=== PATIENT | female | born 1980 ===

== ENCOUNTER 2021-03-17 06:50 | Day surgery (SDC) | payer OTHER ==
[~2021-03-17 06:50] MED LIST: Lactated Ringers 1,000 ML IV SCH
[2021-03-17] MEDS ORDERED: Midazolam 1 MG/ML 2 ML SDV ONE (06:57)
[2021-03-17] MEDS ORDERED: Propofol 200 MG/20 ML SDV ONE (06:57)
[2021-03-17] MEDS ORDERED: fentaNYL 250 MCG/5 ML SDV ONE (06:57)
[2021-03-17] MEDS ORDERED: Sugammadex Sodium 200 MG/2 ML VIAL ONE (06:58)
[2021-03-17] MEDS ORDERED: Ondansetron 4 MG/2 ML SDV ONE (06:58)
[2021-03-17] MEDS ORDERED: Glycopyrrolate 0.2 MG/ML SDV ONE (06:58)
[2021-03-17] MEDS ORDERED: Lidocaine 2% 5 ML SDV ONE (06:58)
[2021-03-17] MEDS ORDERED: Ketorolac 30 MG/ML SDV ONE (06:58)
[2021-03-17] MEDS ORDERED: Rocuronium Bromide 50 MG/5 ML Syringe ONE (06:58)
[2021-03-17] MEDS ORDERED: Sodium Chloride 0.9% 20 ML ONE (07:08)
[2021-03-17] MEDS ORDERED: ceFAZolin 1 GM Vial ONE (07:08)
[2021-03-17] MEDS ORDERED: Fluorescein 5 ML Vial ONE (07:32)
[2021-03-17] MEDS ORDERED: Methylene Blue 50 MG/10 ML Ampule ONE (07:32)
[2021-03-17] MEDS ORDERED: Octyl 2-Cyanoacrylate 1 Tube ONE (07:33)
[2021-03-17] MEDS ORDERED: Bupivacaine 0.25% 10 ML SDV ONE (07:33)
--- NOTE | 2021-03-17 07:37 | PCM.PREANE ---
Preanesthetic Assessment - Anesthesia/Transfusion/Family Hx Anesthesia History: Prior Anesthesia Without Reaction Family History of Anesthesia Reaction: No Transfusion History: No Prior Transfusion(s) - Review of Systems General: No Symptoms Pulmonary: No Symptoms Cardiovascular: No Symptoms Gastrointestinal: No Symptoms Neurological: No Symptoms Other: Reports: None - Physical Assessment NPO Status Date: 03/17/21 NPO Status Time: 00:01 Vital Signs: Last Vital Signs Temp 97.2 F 03/17/21 07:00 Pulse 71 03/17/21 07:00 Resp 15 03/17/21 07:00 BP 145/86 H 03/17/21 07:00 Pulse Ox 100 03/17/21 07:00 Height: 5 ft 6 in Weight: 197 lb ASA Class: 2 Mental Status: Alert & Oriented x3 Airway Class: Mallampati = 2 Dentition: Reports: Normal Dentition ROM/Head Extension: Full Lungs: Clear to Auscultation, Normal Respiratory Effort Cardiovascular: Regular Rate, Regular Rhythm - Lab Values: Laboratory Last Values WBC 8.18 K/uL (4.0-11.0) 03/17/21 07:10 RBC 4.24 M/uL (4.30-5.90) L 03/17/21 07:10 Hgb 12.8 g/dL (12.0-16.0) 03/17/21 07:10 Hct 38.7 % (36.0-46.0) 03/17/21 07:10 MCV 91.3 fL (80.0-98.0) 03/17/21 07:10 MCH 30.2 pg (27.0-32.0) 03/17/21 07:10 MCHC 33.1 g/dL (31.0-37.0) 03/17/21 07:10 RDW Std Deviation 43.4 fl (28.0-62.0) 03/17/21 07:10 RDW Coeff of Stefania 13 % (11.0-15.0) 03/17/21 07:10 Plt Count 370 K/uL (150-400) 03/17/21 07:10 MPV 10.00 fL (7.40-12.00) 03/17/21 07:10 Neut % (Auto) 42.3 % (48.0-80.0) L 03/17/21 07:10 Lymph % (Auto) 45.8 % (16.0-40.0) H 03/17/21 07:10 Moca % (Auto) 7.7 % (0.0-15.0) 03/17/21 07:10 Eos % (Auto) 3.8 % (0.0-7.0) 03/17/21 07:10 Baso % (Auto) 0.4 % (0.0-1.5) 03/17/21 07:10 Neut # (Auto) 3.5 K/uL (1.4-5.7) 03/17/21 07:10 Lymph # (Auto) 3.8 K/uL (0.6-2.4) H 03/17/21 07:10 Moca # (Auto) 0.6 K/uL (0.0-0.8) 03/17/21 07:10 Eos # (Auto) 0.3 K/uL (0.0-0.7) 03/17/21 07:10 Baso # (Auto) 0.0 K/uL (0.0-0.1) 03/17/21 07:10 Nucleated RBC % 0.0 /100WBC 03/17/21 07:10 Nucleated RBCs # 0 K/uL 03/17/21 07:10 - Allergies Allergies/Adverse Reactions: Allergies Allergy/AdvReac Type Severity Reaction Status Date / Time bupropion [From Wellbutrin] Allergy Hives Verified 03/13/21 08:20 Penicillins Allergy Rash Verified 03/13/21 08:20 - Anesthesia Plan Pre-Op Medication Ordered: None - Acknowledgements Anesthesia Type Planned: General Anesthesia Pt an Appropriate Candidate for the Planned Anesthesia: Yes Alternatives and Risks of Anesthesia Discussed w Pt/Guardian: Yes Pt/Guardian Understands and Agrees with Anesthesia Plan: Yes Additional Comments: npo after mn obesity bmi 32 htn no cv problems depression tob none etoh occ par no questions PreAnesthesia Questionnaire HEENT History: Reports: Other (See Below) Other HEENT History: wears glasses/contacts Cardiovascular History: Reports: Hypertension Respiratory History: Reports: None Gastrointestinal History: Reports: None Genitourinary History: Reports: None SKEIN TIER History: Reports: Musculoskeletal History: Reports: None Neurological History: Reports: None Psychiatric History: Reports: None Endocrine/Metabolic History: Reports: Hypothyroidism, Obesity/BMI 30+ Hematologic History: Reports: None Immunologic History: Reports: None Oncologic (Cancer) History: Reports: None Dermatologic History: Reports: None - Past Surgical History Head Surgeries/Procedures: Reports: None HEENT Surgical History: Reports: None Cardiovascular Surgical History: Reports: None Respiratory Surgical History: Reports: None GI Surgical History: Reports: Appendectomy Female Surgical History: Reports: Section, Other (See Below) Other Female Surgeries/Procedures: c/section x2, laparotomy for dermoid cyst Endocrine Surgical History: Reports: None Neurological Surgical History: Reports: None Musculoskeletal Surgical History: Reports: None Oncologic Surgical History: Reports: None Dermatological Surgical History: Reports: None - SUBSTANCE USE Tobacco Use Status *Q: Former Tobacco User Tobacco Use Within Last Twelve Months: Cigarettes - HOME MEDS Home Medications: Home Meds Levothyroxine [Synthroid] 50 mcg PO DAILY 03/13/21 [History] Losartan [Cozaar] 12.5 mg PO DAILY 03/13/21 [History] Multivitamin 1 tab PO DAILY 03/13/21 [History] Aurora-3/DHA/Epa/Fish Oil [Aurora-3 Fish Oil 1,200 MG Sfgl] 2,400 mg PO DAILY 03/13/21 [History] - CURRENT (IN HOUSE) MEDS Current Meds: Current Medications Lactated Ringer's (Ringers, Lactated) 1,000 mls @ 100 mls/hr IV ASDIRECTED [facility] Last Admin: 03/17/21 07:26 Dose: 100 mls/hr Documented by: Discontinued Medications Cefazolin Sodium (Cefazolin 1 Gm Vial) Confirm Administered Dose 2 gm .ROUTE .STK-MED ONE Stop: 03/17/21 07:09 Fentanyl (Fentanyl 250 Mcg/5 Ml Sdv) Confirm Administered Dose 250 mcg .ROUTE .STK-MED ONE Stop: 03/17/21 06:58 Glycopyrrolate (Glycopyrrolate 0.2 Mg/Ml Sdv) Confirm Administered Dose 0.2 mg .ROUTE .STK-MED ONE Stop: 03/17/21 06:59 Sodium Chloride (Normal Saline) Confirm Administered Dose 20 mls @ as directed .ROUTE .STK-MED ONE Stop: 03/17/21 07:09 Ketorolac Tromethamine (Ketorolac 30 Mg/Ml Sdv) Confirm Administered Dose 30 mg .ROUTE .STK-MED ONE Stop: 03/17/21 06:59 Lidocaine (Lidocaine 2% 5 Ml Sdv) Confirm Administered Dose 5 ml .ROUTE .STK-MED ONE Stop: 03/17/21 06:59 Midazolam HCl (Midazolam 1 Mg/Ml 2 Ml Sdv) Confirm Administered Dose 2 mg .ROUTE .[facility]-MED ONE Stop: 03/17/21 06:58 Ondansetron HCl (Ondansetron 4 Mg/2 Ml Sdv) Confirm Administered Dose 4 mg .ROUTE .[facility]-MED ONE Stop: 03/17/21 06:59 Propofol (Propofol 200 Mg/20 Ml Sdv) Confirm Administered Dose 200 mg .ROUTE .[facility]-MED ONE Stop: 03/17/21 06:58 Rocuronium Cassatt (Rocuronium Cassatt 50 Mg/5 Ml Syringe) Confirm Administered Dose 50 mg .ROUTE .[facility]-MED ONE Stop: 03/17/21 06:59 Sugammadex Sodium (Sugammadex Sodium 200 Mg/2 Ml Vial) Confirm Administered Dose 200 mg .ROUTE .[facility]-MED ONE Stop: 03/17/21 06:59
[2021-03-17 07:44] LABS: BLOOD UREA NITROGEN,BUN 17 mg/dL (7.0-18.0); CARBON DIOXIDE,CO2 27.9 mmol/L (21.0-32.0); CHLORIDE,CL 103 mmol/L (98-107); GLUCOSE RANDOM 99 mg/dL (74-106); SODIUM,NA 138 mmol/L (136-145)
[2021-03-17] MEDS ORDERED: Acetaminophen 1,000 MG in Premix Bag 1 BAG IV PRN (08:35)
[2021-03-17] MEDS ORDERED: Furosemide 40 MG/4 ML VIAL ONE (09:05)
[2021-03-17] MEDS ORDERED: fentaNYL 100 MCG/2 ML SDV ONE (09:37)
--- NOTE | 2021-03-17 10:05 | PCM.OPNOTE ---
- General Post-Op/Procedure Note Date of Surgery/Procedure: 03/17/21 Operative Procedure(s): laparoscopic assisted vaginal hysterectomy, bilateral salpingectomy, pelvic washings and cystoscopy Findings: stage 2 endometriosis, implants in posterior cul de sac adjacent to ovaries and medial leaf of broad ligament. Normal appearing ovaries. On cystoscopy there was no evidence of any bladder trauma and there was copious flow of urine from bilateral ureteral orifices. Pre Op Diagnosis: dysmenorrhea, menometrorrhagia, uterine polyp Post-Op Diagnosis: Same and stage 2 endometriosis. Anesthesia Technique: General ET Tube Primary Surgeon: Ashley Walls Secondary Surgeon: Angelina Fox Anesthesia Provider: Jairo Stephens Instructional Technology Teacher: Mazin Vallecillo Pathology: uterus, bilateral fallopian tubes and pelvic washings. Fluid Replacement, Intraop: 2,000 Output, Urine Amount: 50 EBL in mLs: 250 Complications: None Known. Condition: Good
[2021-03-17] MEDS ORDERED: Morphine 4 MG/ML Syringe IVPUSH PRN (10:07)
[2021-03-17] MEDS ORDERED: Acetaminophen/oxyCODONE 325-5 MG Tab PO PRN ×2 (10:07)
[2021-03-17] MEDS ORDERED: Ketorolac 30 MG/ML SDV IVPUSH ONE (10:07)
[2021-03-17] MEDS ORDERED: Promethazine 25 MG/ML SDV IM PRN (10:07)
[2021-03-17] MEDS ORDERED: Ondansetron 4 MG/2 ML SDV IVPUSH PRN (10:07)
[2021-03-17] MEDS: fentaNYL 100 MCG/2 ML SDV IVPUSH PRN ×2 (10:09→10:18)
--- NOTE | 2021-03-17 10:46 | PCM.POSTAN ---
POST ANESTHESIA ASSESSMENT - MENTAL STATUS Mental Status: Alert (no anesthetic problems), Oriented - VITAL SIGNS Vital Signs: Last Vital Signs Temp 97.5 F 03/17/21 10:03 Pulse 55 L 03/17/21 10:38 Resp 10 L 03/17/21 10:38 BP 107/61 03/17/21 10:38 Pulse Ox 98 03/17/21 10:38 - RESPIRATORY Respiratory Status: Respiratory Rate WNL, Airway Patent, O2 Saturation Stable - CARDIOVASCULAR CV Status: Pulse Rate WNL, Blood Pressure Stable - GASTROINTESTINAL GI Status: No Symptoms - POST OP HYDRATION Hydration Status: Adequate & Stable
[2021-03-17] MEDS: Ketorolac 30 MG/ML SDV IVPUSH SCH ×3 (11:11→22:43)
[2021-03-17] MEDS ORDERED: Ondansetron 4 MG/2 ML SDV IVPUSH STA (16:27)
--- NOTE | 2021-03-17 17:46 | OR ---
SURGEON: Ashley Walls M.D. DATE OF PROCEDURE: 03/17/2021 PREOPERATIVE DIAGNOSIS: Menorrhagia, pelvic pain, and uterine polyp. POSTOPERATIVE DIAGNOSIS: Menorrhagia, pelvic pain, uterine polyp, and stage II endometriosis. PROCEDURE: Laparoscopic-assisted vaginal hysterectomy with bilateral salpingectomy, cystoscopy, and pelvic washings. PRIMARY SURGEON: Ashley Walls M.D. NEWS BROADCASTER: Angelina Fox MD. ANESTHESIA: General endotracheal. FLUIDS: 2000 mL of crystalloid. ESTIMATED BLOOD LOSS: 250 mL. FINDINGS: Uterus 10-week size. Bilateral tubes and ovaries are normal except for adhesions between the fimbria and the ovary. There is retracted implants of endometriosis in the posterior cul-de-sac along the bilateral uterosacral ligament on the posterior aspect of the uterus, on the medial aspect of the broad ligaments bilaterally and over the anterior peritoneum. On cystoscopy, there was copious flow of bright green urine after giving fluorescein IV, and there was no evidence of any trauma to the bladder mucosa. COMPLICATIONS: None known. DISPOSITION: Stable to Recovery. PATHOLOGY SPECIMEN: Uterus, bilateral fallopian tubes, and pelvic washings. BRIEF HISTORY: This is a 40-year-old female. She presents with heavy painful period. She does have a remote known history of endometriosis. On ultrasound, uterine polyp was found as well as possible adenomyosis, and she was offered hysteroscopy with IUD placement versus ablation versus hysterectomy. Her mother does have a history of primary peritoneal cancer, and therefore, she desired to proceed with definitive management with hysterectomy with risks discussed including bleeding; infection; injury to bowel, bladder, blood vessels, ureters, or other organs; risk of thromboembolic event; and risk of anesthesia. Additionally, she understands that she will not be able to conceive in the future and she is agreeable with this. Finally, we will do pelvic washings due to maternal history of her mother having the primary peritoneal cancer. DESCRIPTION OF PROCEDURE: With the patient in dorsal lithotomy position, under adequate general endotracheal anesthesia, the abdomen was prepped with chlorhexidine, and the perineum and vagina were prepped with Betadine and draped in usual fashion for vaginal surgery. SCDs were in place. Allen catheter had been placed. Appropriate time-out was held. She had received 2 g of Ancef IV. After the abdomen and pelvis had been appropriately draped, bimanual examination revealed a 10-week size mobile anteverted uterus. Speculum was placed in the vagina. The cervix was grasped with an Allis clamp and dilated to an 8-mm Hegar dilator. The ZUMI uterine manipulator was placed to the uterine fundus and the balloon was filled. The inclined railway operator's gloves were changed. Attention was then turned abdominally where 3 mL of 0.25% Marcaine was injected inferior to the umbilicus and a 5-mm incision was made with a scalpel. The anterior abdominal wall was elevated. Veress needle was inserted. Opening pressure was 3 mmHg. CO2 was insufflated to develop an adequate pneumoperitoneum of 15 mmHg. The 5 mm port was placed. The laparoscope was then placed into the abdominal cavity. There was no evidence of any trauma at the port placement site. There was extensive adhesion between the omentum and the anterior abdominal wall. Two additional port sites were placed 2 cm medial and cephalad from the anterior superior iliac spine on the right and the left under direct visualization without any difficulty. The omental adhesion was then dissected free of the anterior abdominal wall using the LigaSure. The uterus was then elevated. Findings were as noted above including the retracted areas of endometriosis. However, the ureters were easily identified and actually some of the endometriotic implants were immediately over the ureter, but the ureters were deep in the pelvis well away from the field of dissection. Therefore, the tips of the tubes were grasped and from the ovaries bilaterally. The mesosalpinx was incised using the LigaSure, and continuing down the broad ligament, this was doubly cauterized and ligated and cut using the LigaSure incorporating the round ligament, the utero-ovarian ligament, and then, anterior leaf of the broad ligament was opened, entering across the anterior cul-de-sac near the uterocervical junction. This peritoneum was opened and . The posterior peritoneum was also dissected revealing the uterine vessels which were double cauterized twice and then cut, and this was repeated on the opposite side. This being completed, the abdomen was desufflated, and attention was turned vaginally. Prior to proceeding with the beginning the hysterectomy, but after dissecting the omental adhesion, the pelvis had been copiously irrigated with normal saline and collected for pelvic washings. Attention was then turned vaginally. The ZUMI uterine manipulator was removed. A weighted speculum was placed. The bladder was released of the indigo carmine which had been placed prior to the upper dissection, and the cervix was grasped with a Vitor tenaculum, circumscribed with electrocautery. The vaginal mucosa was pushed away from the cervix. The posterior cul-de-sac was entered sharply. A Nic- Auvard speculum was placed posteriorly. The anterior cul-de-sac was dissected and it was dissected approximately 4 cm cephalad from the cervical incision, and the peritoneum still had not been entered. Therefore, with retraction of the anterior wall of the vagina and the bladder, the uterosacral ligaments were clamped and ligated using Ivy ligature of 2-0 Polysorb. These were retained for support. I then did further anterior dissection using Metzenbaum scissors up to the level of the opened peritoneum. A finger was used to enter the peritoneal cavity and the right angle retractor was placed anteriorly. Two additional pedicles were taken on the right and the left. This freed up the uterus and tubes, which were then delivered vaginally. The pelvis was carefully inspected. There was some bleeding adjacent to the right uterosacral ligament. This area was clamped with a Ivy clamp and ligated using Ivy ligature of 2- 0 Polysorb. I felt that this was a better grasp on the uterosacral ligament and this was utilized to attach to the vaginal apices on the right and the retained uterosacral ligament ligature was attached to the vaginal apex on the left. Careful inspection confirmed hemostasis vaginally. Therefore, the packing which had been placed for inspection was removed and the vaginal mucosa was closed with a running lock suture of 0 Polysorb. The catheter was removed. IV fluorescein had been given as well as Lasix, and cystoscopy was performed. There was excellent visualization of the bladder. There was no evidence of any trauma to the bladder mucosa. Bilateral ureteral orifices were identified and there was copious flow of bright green urine from the fluorescein bilaterally. This being completed, a new catheter was placed and set to drainage. Attention was then turned to the abdomen where the abdomen was re-insufflated and the patient was placed in Trendelenburg position, and the pelvis was copiously irrigated and carefully inspected. There were several areas of bleeding on the cuff that were cauterized. An inspection under 5 mm of pressure showed no significant active bleeding, but a small amount of oozing near the bladder dissection area, and therefore, Barber was placed. This being completed, there was no oozing and no active bleeding under low pressure. Therefore, the port sites were removed as well as all the laparoscopic instruments. The abdomen was completely desufflated, and the skin was closed with a running subcuticular suture of 4-0 Monocryl. The vagina was inspected and was hemostatic. Final sponge, needle, and instrument counts were reported as correct. There were no known complications. The patient was transferred to Recovery in good condition. HANS SPRAGUE /[id number]
[2021-03-18] MEDS: Ketorolac 30 MG/ML SDV IVPUSH SCH (04:24)
[2021-03-18 06:32] LABS: BLOOD UREA NITROGEN,BUN 10 mg/dL (7.0-18.0); CARBON DIOXIDE,CO2 26.8 mmol/L (21.0-32.0); CHLORIDE,CL 103 mmol/L (98-107); GLUCOSE RANDOM 103 mg/dL (74-106); POTASSIUM,K 3.7 mmol/L (3.5-5.1); SODIUM,NA 137 mmol/L (136-145)
[2021-03-18] MEDS ORDERED: Levothyroxine 50 MCG Tab PO SCH (07:30)
--- NOTE | 2021-03-18 08:33 | PCM.SURGPN ---
- General Info Date of Service: 03/18/21 Date of Surgery/Procedure: 03/17/21 POD#: 1 Post-Op Diagnosis: menorrhagia, endometriosis Functional Status: Reports: Pain Controlled, Tolerating Diet, Ambulating, Urinating - Review of Systems General: Reports: No Symptoms HEENT: Reports: No Symptoms Pulmonary: Reports: No Symptoms Cardiovascular: Reports: No Symptoms Gastrointestinal: Reports: No Symptoms Genitourinary: Reports: No Symptoms Musculoskeletal: Reports: No Symptoms Skin: Reports: No Symptoms Neurological: Reports: No Symptoms Psychiatric: Reports: No Symptoms - Patient Data Vitals - Most Recent: Last Vital Signs Temp 36.8 C 03/18/21 07:38 Pulse 76 03/18/21 07:38 Resp 14 03/18/21 07:38 BP 103/55 L 03/18/21 07:38 Pulse Ox 96 03/18/21 07:38 Weight - Most Recent: 89.358 kg I&O - Last 24 Hours: Intake & Output 03/17/21 03/18/21 03/18/21 22:59 06:59 14:59 Intake Total 500 1150 Output Total 650 1700 Balance -150 -550 Lab Results Last 24 Hrs: Laboratory Results - last 24 hr 03/18/21 03/18/21 Range/Units 05:55 05:55 WBC 10.32 (4.0-11.0) K/uL RBC 3.65 L (4.30-5.90) M/uL Hgb 11.1 L (12.0-16.0) g/dL Hct 33.3 L (36.0-46.0) % MCV 91.2 (80.0-98.0) fL MCH 30.4 (27.0-32.0) pg MCHC 33.3 (31.0-37.0) g/dL RDW Std Deviation 43.8 (28.0-62.0) fl RDW Coeff of Stefania 13 (11.0-15.0) % Plt Count 320 (150-400) K/uL MPV 9.90 (7.40-12.00) fL Neut % (Auto) 65.5 (48.0-80.0) % Lymph % (Auto) 27.2 (16.0-40.0) % [place] % (Auto) 6.5 (0.0-15.0) % Eos % (Auto) 0.7 (0.0-7.0) % Baso % (Auto) 0.1 (0.0-1.5) % Neut # (Auto) 6.8 H (1.4-5.7) K/uL Lymph # (Auto) 2.8 H (0.6-2.4) K/uL [place] # (Auto) 0.7 (0.0-0.8) K/uL Eos # (Auto) 0.1 (0.0-0.7) K/uL Baso # (Auto) 0.0 (0.0-0.1) K/uL Nucleated RBC % 0.0 /100WBC Nucleated RBCs # 0 K/uL Sodium 137 (136-145) mmol/L Potassium 3.7 (3.5-5.1) mmol/L Chloride 103 (98-107) mmol/L Carbon Dioxide 26.8 (21.0-32.0) mmol/L BUN 10 (7.0-18.0) mg/dL Creatinine 0.9 (0.6-1.0) mg/dL Est Cr Clr Drug Dosing 79.34 mL/min Estimated GFR (MDRD) > 60.0 ml/min Glucose 103 (74-106) mg/dL Calcium 8.0 L (8.5-10.1) mg/dL Med Orders - Current: Current Medications Fish Oil (Fish Oil/[place]-3 Fatty Acids 1 Gm Cap) 2 gm PO DAILY [facility] Last Admin: 03/18/21 08:24 Dose: Not Given Documented by: HCTZ/Losartan Potassium (Hydrochlorothiazide/Losartan 12.5-50 Mg Tab) 1 tab PO DAILY [facility] [place] Last Admin: 03/18/21 08:22 Dose: Not Given Documented by: Ketorolac Tromethamine (Ketorolac 30 Mg/Ml Sdv) 30 mg IVPUSH Q6H [facility] [place] Stop: 03/22/21 10:07 Last Admin: 03/18/21 04:24 Dose: 30 mg Documented by: Levothyroxine Sodium (Levothyroxine 50 Mcg Tab) 50 mcg PO ACBREAKFAST [facility] [place] Last Admin: 03/18/21 07:35 Dose: 50 mcg Documented by: Morphine Sulfate (Morphine 4 Mg/Ml Syringe) 4 mg IVPUSH Q2H PRN PRN Reason: Pain (severe 7-10) Last Admin: 03/17/21 12:50 Dose: 4 mg Documented by: Multivitamins/Minerals/Vitamin C (Multivitamin Tab) 1 tab PO DAILY [facility] Last Admin: 03/18/21 08:24 Dose: Not Given Documented by: Ondansetron HCl (Ondansetron 4 Mg/2 Ml Sdv) 4 mg IVPUSH Q6H PRN PRN Reason: Nausea/Vomiting Last Admin: 03/17/21 11:49 Dose: 4 mg Documented by: Oxycodone/Acetaminophen (Acetaminophen/Oxycodone 325-5 Mg Tab) 1 tab PO Q4H PRN PRN Reason: Pain (moderate 4-6) Last Admin: 03/17/21 20:28 Dose: 1 tab Documented by: Oxycodone/Acetaminophen (Acetaminophen/Oxycodone 325-5 Mg Tab) 2 tab PO Q4H PRN PRN Reason: Pain (moderate 4-6) Promethazine HCl (Promethazine 25 Mg/Ml Sdv) 25 mg IM Q6H PRN PRN Reason: Nausea/Vomiting Discontinued Medications Bupivacaine HCl (Bupivacaine 0.25% 10 Ml Sdv) Confirm Administered Dose 10 ml .ROUTE .STK-MED ONE Stop: 03/17/21 07:34 Cefazolin Sodium (Cefazolin 1 Gm Vial) Confirm Administered Dose 2 gm .ROUTE .STK-MED ONE Stop: 03/17/21 07:09 Fentanyl (Fentanyl 250 Mcg/5 Ml Sdv) Confirm Administered Dose 250 mcg .ROUTE .STK-MED ONE Stop: 03/17/21 06:58 Fentanyl (Fentanyl 100 Mcg/2 Ml Sdv) 50 mcg IVPUSH Q5M PRN PRN Reason: Pain Last Admin: 03/17/21 10:18 Dose: 50 mcg Documented by: Fentanyl (Fentanyl 100 Mcg/2 Ml Sdv) Confirm Administered Dose 100 mcg .ROUTE .STK-MED ONE Stop: 03/17/21 09:38 Fluorescein Sodium (Fluorescein 5 Ml Vial) Confirm Administered Dose 5 ml .ROUTE .STK-MED ONE Stop: 03/17/21 07:33 Furosemide (Furosemide 40 Mg/4 Ml Vial) Confirm Administered Dose 40 mg .ROUTE .STK-MED ONE Stop: 03/17/21 09:06 Glycopyrrolate (Glycopyrrolate 0.2 Mg/Ml Sdv) Confirm Administered Dose 0.2 mg .ROUTE .ST-MED ONE Stop: 03/17/21 06:59 Lactated Ringer's (Ringers, Lactated) 1,000 mls @ 100 mls/hr IV ASDIRECTED [facility] Last Admin: 03/17/21 07:26 Dose: 100 mls/hr Documented by: Sodium Chloride (Normal Saline) Confirm Administered Dose 20 mls @ as directed .ROUTE .[facility]-MED ONE Stop: 03/17/21 07:09 Acetaminophen 1,000 mg/ Premix 100 mls @ 400 mls/hr IV Q6H PRN PRN Reason: Pain Last Admin: 03/17/21 10:10 Dose: 400 mls/hr Documented by: Ketorolac Tromethamine (Ketorolac 30 Mg/Ml Sdv) Confirm Administered Dose 30 mg .ROUTE .ST-MED ONE Stop: 03/17/21 06:59 Ketorolac Tromethamine (Ketorolac 30 Mg/Ml Sdv) 30 mg IVPUSH ONETIME ONE Stop: 03/17/21 10:08 Last Admin: 03/17/21 11:11 Dose: Not Given Documented by: Lidocaine (Lidocaine 2% 5 Ml Sdv) Confirm Administered Dose 5 ml .ROUTE .ST-MED ONE Stop: 03/17/21 06:59 Methylene Blue (Methylene Blue 50 Mg/10 Ml Ampule) Confirm Administered Dose 50 mg .ROUTE .ST-MED ONE Stop: 03/17/21 07:33 Midazolam HCl (Midazolam 1 Mg/Ml 2 Ml Sdv) Confirm Administered Dose 2 mg .ROUTE .[facility]-MED ONE Stop: 03/17/21 06:58 Octyl Cyanoacrylate (Octyl 2-Cyanoacrylate 1 Tube) Confirm Administered Dose 0 applic .ROUTE .ST-MED ONE Stop: 03/17/21 07:34 Ondansetron HCl (Ondansetron 4 Mg/2 Ml Sdv) Confirm Administered Dose 4 mg .ROUTE .ST-MED ONE Stop: 03/17/21 06:59 Ondansetron HCl (Ondansetron 4 Mg/2 Ml Sdv) 4 mg IVPUSH ONETIME STA Stop: 03/17/21 16:28 Last Admin: 03/17/21 16:31 Dose: 4 mg Documented by: Propofol (Propofol 200 Mg/20 Ml Sdv) Confirm Administered Dose 200 mg .ROUTE .STK-MED ONE Stop: 03/17/21 06:58 Rocuronium Upperco (Rocuronium Upperco 50 Mg/5 Ml Syringe) Confirm Administered Dose 50 mg .ROUTE .STK-MED ONE Stop: 03/17/21 06:59 Sugammadex Sodium (Sugammadex Sodium 200 Mg/2 Ml Vial) Confirm Administered Dose 200 mg .ROUTE .STK-MED ONE Stop: 03/17/21 06:59 - Exam Wound/Incisions: Dressing Dry and Intact General: Alert, Oriented Neck: Supple Lungs: Clear to Auscultation, Normal Respiratory Effort Cardiovascular: Regular Rate, Regular Rhythm GI/Abdominal Exam: Normal Bowel Sounds, Soft, Non-Tender, No Distention, No Mass Extremities: Non-Tender, No Pedal Edema Skin: Warm, Dry, Intact Psy/Mental Status: Alert, Normal Affect, Normal Mood Sepsis Event Note - Evaluation Sepsis Screening Result: No Definite Risk - Focused Exam Vital Signs: Vital Signs Temp Pulse Resp BP Pulse Ox 03/18/21 07:38 36.8 C 76 14 103/55 L 96 03/18/21 04:21 37 C 73 15 101/62 97 03/18/21 00:05 37.1 C 75 15 96/62 96 - Problem List & Annotations (1) Menorrhagia SNOMED Code(s): 791799774 Code(s): N92.0 - EXCESSIVE AND FREQUENT MENSTRUATION WITH REGULAR CYCLE Status: Acute Current Visit: Yes (2) Endometriosis SNOMED Code(s): 124647359 Code(s): N80.9 - ENDOMETRIOSIS, UNSPECIFIED Status: Acute Current Visit: Yes - Problem List Review Problem List Initiated/Reviewed/Updated: Yes - My Orders Last 24 Hours: Active Orders 24 hr Category Date Time Status Patient Status [ADT] Routine ADT 03/17/21 10:07 Active Antiembolic Devices [RC] PER UNIT ROUTINE Care 03/17/21 10:07 Active Notify Provider Intake and Out [RC] ASDIRECTED Care 03/17/21 10:07 Active Notify Provider Vital Signs [RC] ASDIRECTED Care 03/17/21 10:07 Active Oxygen Therapy [RC] ASDIRECTED Care 03/17/21 10:07 Active RT Incentive Spirometry [RC] Q2HWA Care 03/17/21 10:07 Active Ready for Discharge [RC] PER UNIT ROUTINE Care 03/18/21 08:29 Ordered Up With Assistance [RC] PER UNIT ROUTINE Care 03/17/21 10:07 Active Up ad Elyssa [RC] PER UNIT ROUTINE Care 03/17/21 10:07 Active Vital Signs [RC] PER UNIT ROUTINE Care 03/17/21 10:07 Active Regular Diet [DIET] Diet 03/17/21 Dinner Active Acetaminophen/oxyCODONE [Percocet 325-5 MG] Med 03/17/21 10:07 Active 1 tab PO Q4H PRN Acetaminophen/oxyCODONE [Percocet 325-5 MG] Med 03/17/21 10:07 Active 2 tab PO Q4H PRN Fish Oil/[place]-3 Fatty Acids [Fish Oil] Med 03/18/21 09:00 Active 2 gm PO DAILY Hydrochlorothiazide/Losartan [Hyzaar 50-12.5 MG] Med 03/18/21 09:00 Active 1 tab PO DAILY Ketorolac [Toradol] Med 03/17/21 10:15 Active 30 mg IVPUSH Q6H Levothyroxine [Synthroid] Med 03/18/21 07:30 Active 50 mcg PO ACBREAKFAST Morphine Med 03/17/21 10:07 Active 4 mg IVPUSH Q2H PRN Multivitamins [Tab-A-[place]] Med 03/18/21 09:00 Active 1 tab PO DAILY Ondansetron [Zofran] Med 03/17/21 10:07 Active 4 mg IVPUSH Q6H PRN Promethazine [Phenergan] Med 03/17/21 10:07 Active 25 mg IM Q6H PRN Peripheral IV Discontinue [OM.PC] Routine Oth 03/17/21 10:07 Ordered Sequential Compression Device [OM.PC] Per Unit Routine Oth 03/17/21 10:07 Ordered Resuscitation Status Routine Resus Stat 03/17/21 10:07 Ordered Medication Orders Fish Oil (Fish Oil/[place]-3 Fatty Acids 1 Gm Cap) 2 gm PO DAILY [facility] Last Admin: 03/18/21 08:24 Dose: Not Given Documented by: [id number] HCTZ/Losartan Potassium (Hydrochlorothiazide/Losartan 12.5-50 Mg Tab) 1 tab PO DAILY [facility] [place] Last Admin: 03/18/21 08:22 Dose: Not Given Documented by: NAHUN Ketorolac Tromethamine (Ketorolac 30 Mg/Ml Sdv) 30 mg IVPUSH Q6H [facility] [place] Stop: 03/22/21 10:07 Last Admin: 03/18/21 04:24 Dose: 30 mg Documented by: Admin: 03/17/21 22:43 Dose: 30 mg Documented by: Admin: 03/17/21 15:45 Dose: 30 mg Documented by: Admin: 03/17/21 11:11 Dose: Not Given Documented by: JOHNNY Levothyroxine Sodium (Levothyroxine 50 Mcg Tab) 50 mcg PO ACBREAKFAST [facility] [place] Last Admin: 03/18/21 07:35 Dose: 50 mcg Documented by: NAHUN Morphine Sulfate (Morphine 4 Mg/Ml Syringe) 4 mg IVPUSH Q2H PRN PRN Reason: Pain (severe 7-10) Last Admin: 03/17/21 12:50 Dose: 4 mg Documented by: JOHNNY Multivitamins/Minerals/Vitamin C (Multivitamin Tab) 1 tab PO DAILY [facility] [place] Last Admin: 03/18/21 08:24 Dose: Not Given Documented by: NAHUN Ondansetron HCl (Ondansetron 4 Mg/2 Ml Sdv) 4 mg IVPUSH Q6H PRN PRN Reason: Nausea/Vomiting Last Admin: 03/17/21 11:49 Dose: 4 mg Documented by: JOHNNY Oxycodone/Acetaminophen (Acetaminophen/Oxycodone 325-5 Mg Tab) 1 tab PO Q4H PRN PRN Reason: Pain (moderate 4-6) Last Admin: 03/17/21 20:28 Dose: 1 tab Documented by: ABDI Oxycodone/Acetaminophen (Acetaminophen/Oxycodone 325-5 Mg Tab) 2 tab PO Q4H PRN PRN Reason: Pain (moderate 4-6) Promethazine HCl (Promethazine 25 Mg/Ml Sdv) 25 mg IM Q6H PRN PRN Reason: Nausea/Vomiting - Assessment Assessment (Free Text/Narrative):: POD#1 after LAVH/bilateral salpingectomy and cystoscopy with pelvic washings. Discussed operative findings. She has been voiding, pain is controlled with oral medication and she would like to go home. Vitals are stable. - Plan Plan (Free Text/Narrative):: Dismiss to home today. Discharge precautions reviewed. Reviewed diagnosis of endometriosis which is consistent with her symptoms. Will manage medically if needed.
[2021-03-18] MEDS ORDERED: Fish Oil/Omega-3 Fatty Acids 1 Gm Cap PO SCH (09:00)
[2021-03-18] MEDS ORDERED: Multivitamin Tab PO SCH (09:00)
[2021-03-18] MEDS ORDERED: Hydrochlorothiazide/Losartan 12.5-50 mg Tab PO SCH (09:00)
--- NOTE | 2021-03-19 02:44 | PCM48HPAN ---
Post Anesthesia Note - EVALUATION WITHIN 48HRS OF ANESTHETIC Vital Signs in Normal Range: Yes Patient Participated in Evaluation: Yes Respiratory Function Stable: Yes Airway Patent: Yes Cardiovascular Function Stable: Yes Hydration Status Stable: Yes Pain Control Satisfactory: Yes Nausea and Vomiting Control Satisfactory: Yes Mental Status Recovered: Yes Vital Signs: Last Vital Signs Temp 98.2 F 03/18/21 07:38 Pulse 76 03/18/21 07:38 Resp 14 03/18/21 07:38 BP 103/55 L 03/18/21 07:38 Pulse Ox 96 03/18/21 07:38
== END 2021-03-18 09:20 | disposition home or self-care (01) ==
LOC: MW.SDS 06:50 → MW.MS 11:01 → MW.SDS 03-18 09:20
PROVIDERS: ATTEND Obstetrics & Gynecology
DX: N80.0 Endometriosis of uterus (principal); N84.0 Polyp of corpus uteri; N83.8 Other noninflammatory disorders of ovary, fallopian tube and broad ligament; I10 Essential (primary) hypertension; E03.9 Hypothyroidism, unspecified; E66.9 Obesity, unspecified; Z98.890 Other specified postprocedural states; Z88.0 Allergy status to penicillin; Z88.8 Allergy status to other drugs, medicaments and biological substances; Z79.899 Other long term (current) drug therapy; Z68.32 Body mass index [BMI] 32.0-32.9, adult; Z79.890 Hormone replacement therapy; Z87.891 Personal history of nicotine dependence
CPT/HCPCS: 36415; 58552; 80048; 84703; 85025; 86850; 86900; 86901; A9270; J0131; J0690; J1885; J1940; J2250; J2270; J2405; J2704; J3010; J3490; J7120; 00944; 88104; 88307